=== PATIENT | male | born 1940 | race American Indian/Alaskan Native ===

== ENCOUNTER 2017-02-25 09:09 | Emergency (ER) | payer MEDICARE ==
[2017-02-25 10:00] LABS: Hematocrit 48.4 % (35.5-45.6); Hemoglobin 15.7 gm/dl (11.8-15.2); Mean Corpuscular HGB Conc 32 % (32-34); Mean Corpuscular Hemoglobin 31 pg (28-32); Mean Corpuscular Volume 95 fl (84-94); Platelet Count 346 K/mm3 (140-440); Red Blood Count 5.09 M/mm3 (3.65-5.03); Red Cell Distribution Width 16.1 % (13.2-15.2); White Blood Count 14.8 K/mm3 (4.5-11.0)
[2017-02-25 10:19] LABS: Anion Gap 20 mmol/L; Blood Urea Nitrogen 12 mg/dL (9-20); Calcium 8.9 mg/dL (8.4-10.2); Carbon Dioxide 25 mmol/L (22-30); Chloride 100.5 mmol/L (98-107); Glucose 117 mg/dL (75-100); Potassium 4.1 mmol/L (3.6-5.0); Sodium 141 mmol/L (137-145)
--- NOTE | 2017-02-25 11:31 | XRay Report ---
Chest 2 views. History: Shortness of breath. Findings: The heart and pulmonary vessels are normal. The lungs are hyperinflated and clear, unchanged from the study in July of 2015. No pleural fluid or other pleural abnormalities. Impression: COPD with no acute findings or interval changes.
[2017-02-25 11:35] LABS: Blastocytes % (Manual) 0 %; Eosinophils % (Manual) 0 % (0.0-4.3); Schistocytes Rare
[2017-02-25 11:41] LABS: Poikilocytosis 1+
[2017-02-25] MEDS ORDERED: DUONEB *Not for PRN Use IH ONE (11:42)
--- NOTE | 2017-02-25 11:42 | Emergency Department Report ---
ED General Adult HPI - General Chief complaint: Dyspnea/Respdistress Stated complaint: CODIE Time Seen by Provider: 02/25/17 11:36 Source: patient Mode of arrival: Ambulatory Limitations: No Limitations - History of Present Illness Initial comments: The patient complains of difficulty in breathing/wheezing since yesterday. He' s had URI symptoms and sinus drainage for the past few days. He denies any productive cough, fever, chills or chest pain. He does not complain of any leg pain or swelling. He does not have medicine prescribed for a home nebulizer machine which she has. He does have a history of asthma/COPD. He uses inhalers thereof. He took 2 of his own prednisone this a.m. -: Gradual, days(s) Improves with: none Worsens with: none Associated Symptoms: cough (nonproductive), shortness of breath, other (sinus drainage) - Related Data Previous Rx's Medication Instructions Recorded Last Taken Type Arformoterol Nebu [Brovana Nebu] 15 mcg IH Q12HRT #60 ml 05/10/14 08/11/15 09: 00 Rx Albuterol *Only Ed* [Proventil 2.5 mg IH Q3HR PRN #90 nebu 08/13/15 Unknown Rx 0.5% NEBS] Amlodipine Besylate 10 mg PO DAILY #30 08/13/15 Unknown Rx Aspirin [Aspirin BABY CHEW TAB] 81 mg PO HS #80 tab.chew 08/13/15 Unknown Rx Aspirin [Aspirin TAB] 325 mg PO QDAY tablet 08/13/15 Unknown Rx Budesonide [Pulmicort Respules] 0.5 mg IH Q12HRT #30 nebu 08/13/15 Unknown Rx Fluticasone/Vilanterol [Breo 100 mg INHALATION BID #30 08/13/15 Unknown Rx Ellipta 100-25 Mcg INH] aer.pow.ba HYDROcodone/APAP 5-325 [[place] 1 each PO Q4H PRN #30 tablet 08/13/15 Unknown Rx 5-325 mg TAB] Meloxicam 15 mg PO DAILY PRN #20 08/13/15 Unknown Rx Temazepam [Restoril] 30 mg PO QHS #30 capsule 08/13/15 Unknown Rx Tiotropium [Spiriva] 18 cap INHALATION QAM #30 box 08/13/15 Unknown Rx Triamcinolone Acetonide [Nasacort 10.8 ml NS HS #1 spray 08/13/15 Unknown Rx SPRAY] tiZANidine [Zanaflex] 4 mg PO TID #90 tablet 08/13/15 Unknown Rx Albuterol Sulfate [Albuterol 0.63% 0.63 mg IH QID PRN #30 vial.neb 02/25/17 Unknown Rx NEBS] Azithromycin [Zithromax Z-SHERLYN] 250 mg PO DAILY #6 tablet 02/25/17 Unknown Rx predniSONE [Deltasone] 40 mg PO QDAY #14 tab 02/25/17 Unknown Rx Allergies Allergy/AdvReac Type Severity Reaction Status Date / Time lisinopril AdvReac Shortness Verified 05/08/14 13:31 of Breath ED Review of Systems ROS: Stated complaint: CODIE Other details as noted in HPI Constitutional: denies: chills, fever Eyes: denies: eye pain, eye discharge, vision change ENT: denies: ear pain, throat pain Respiratory: cough, shortness of breath, wheezing Cardiovascular: denies: chest pain, palpitations Endocrine: no symptoms reported Gastrointestinal: denies: abdominal pain, nausea, diarrhea Genitourinary: denies: urgency, dysuria Musculoskeletal: denies: back pain, joint swelling, arthralgia Skin: denies: rash, lesions Neurological: denies: headache, weakness, paresthesias Psychiatric: denies: anxiety, depression Hematological/Lymphatic: denies: easy bleeding, easy bruising ED Past Medical Hx - Past Medical History Previous Medical History?: Yes Hx Hypertension: Yes Hx Arthritis: Yes Hx Asthma: Yes Hx COPD: Yes Additional medical history: high cholesterol - Surgical History Past Surgical History?: Yes Additional Surgical History: colonoscopy (5 polyps removed) October. endoscopy November 10, 2013. - Social History Smoking Status: Current Every Day Smoker Substance Use Type: Alcohol, Marijuana, Prescribed Other Social History: Uncertain what the population of substance abuse at triage means - Medications Home Medications: Home Medications Medication Instructions Recorded Confirmed Last Taken Type Arformoterol Nebu [Brovana Nebu] 15 mcg IH Q12HRT #60 ml 05/10/14 08/11/15 09: 00 Rx Albuterol *Only Ed* [Proventil 2.5 mg IH Q3HR PRN #90 nebu 08/13/15 Unknown Rx 0.5% NEBS] Amlodipine Besylate 10 mg PO DAILY #30 08/13/15 Unknown Rx Aspirin [Aspirin BABY CHEW TAB] 81 mg PO HS #80 tab.chew 08/13/15 Unknown Rx Aspirin [Aspirin TAB] 325 mg PO QDAY tablet 08/13/15 Unknown Rx Budesonide [Pulmicort Respules] 0.5 mg IH Q12HRT #30 nebu 08/13/15 Unknown Rx Fluticasone/Vilanterol [Breo 100 mg INHALATION BID #30 08/13/15 Unknown Rx Ellipta 100-25 Mcg INH] aer.pow.ba HYDROcodone/APAP 5-325 [[place] 1 each PO Q4H PRN #30 tablet 08/13/15 Unknown Rx 5-325 mg TAB] Meloxicam 15 mg PO DAILY PRN #20 08/13/15 Unknown Rx Temazepam [Restoril] 30 mg PO QHS #30 capsule 08/13/15 Unknown Rx Tiotropium [Spiriva] 18 cap INHALATION QAM #30 box 08/13/15 Unknown Rx Triamcinolone Acetonide [Nasacort 10.8 ml NS HS #1 spray 08/13/15 Unknown Rx SPRAY] tiZANidine [Zanaflex] 4 mg PO TID #90 tablet 08/13/15 Unknown Rx Albuterol Sulfate [Albuterol 0.63% 0.63 mg IH QID PRN #30 vial.neb 02/25/17 Unknown Rx NEBS] Azithromycin [Zithromax Z-SHERLYN] 250 mg PO DAILY #6 tablet 02/25/17 Unknown Rx predniSONE [Deltasone] 40 mg PO QDAY #14 tab 02/25/17 Unknown Rx ED Physical Exam - General Limitations: No Limitations General appearance: alert, in no apparent distress - Head Head exam: Present: atraumatic, normocephalic, normal inspection - Eye Eye exam: Present: normal appearance, PERRL, EOMI. Absent: scleral icterus - ENT ENT exam: Present: mucous membranes moist - Neck Neck exam: Present: normal inspection. Absent: tenderness, meningismus - Respiratory Respiratory exam: Present: wheezes. Absent: respiratory distress, accessory muscle use, decreased breath sounds, prolonged expiratory - Cardiovascular Cardiovascular Exam: Present: regular rate, normal rhythm. Absent: systolic murmur, diastolic murmur, rubs, gallop - GI/Abdominal GI/Abdominal exam: Present: soft, normal bowel sounds. Absent: distended, tenderness, guarding, rebound, rigid - Rectal Rectal exam: Present: deferred - Extremities Exam Extremities exam: Present: normal inspection - Back Exam Back exam: Present: normal inspection - Neurological Exam Neurological exam: Present: alert, oriented X3, CN II-XII intact. Absent: motor sensory deficit - Psychiatric Psychiatric exam: Present: normal affect, normal mood - Skin Skin exam: Present: warm, dry, intact, normal color. Absent: rash ED Course Vital Signs 02/25/17 02/25/17 02/25/17 09:21 11:55 12:00 Temperature 98.7 F Pulse Rate 82 Pulse Rate [ 70 74 Bilateral Upper Lobe] Respiratory 18 Rate Respiratory 18 18 Rate [Bilateral Upper Lobe] Blood Pressure 142/80 Blood Pressure [Left] O2 Sat by Pulse 95 Oximetry 02/25/17 02/25/17 12:36 12:37 Temperature Pulse Rate 76 Pulse Rate [ Bilateral Upper Lobe] Respiratory 21 21 Rate Respiratory Rate [Bilateral Upper Lobe] Blood Pressure Blood Pressure 154/84 [Left] O2 Sat by Pulse 98 Oximetry - Reevaluation(s) Reevaluation #1: Improved after nebs. Lungs are clear. Appropriate for discharge. 02/25/17 13:40 ED Medical Decision Making - Lab Data Result diagrams: 02/25/17 09:42 02/25/17 09:42 Laboratory Results - last 24 hr 02/25/17 02/25/17 09:42 09:42 WBC 14.8 H RBC 5.09 H Hgb 15.7 H Hct 48.4 H MCV 95 H MCH 31 MCHC 32 RDW 16.1 H Plt Count 346 Seg Neutrophils % Registered Nurse Step Down Sodium 141 Potassium 4.1 Chloride 100.5 Carbon Dioxide 25 Anion Gap 20 BUN 12 Creatinine 1.0 Estimated GFR > 60 BUN/Creatinine Ratio 12.00 Glucose 117 H Calcium 8.9 Troponin T 0.014 - EKG Data -: EKG Interpreted by Me EKG shows normal: sinus rhythm, intervals, ST-T waves - EKG Data Interpretation: other (left axis deviation, incomplete right bundle branch block , no acute ischemic changes, secondary repolarization abnormality.) - Radiology Data interpreted by me: Chest x-ray consistent with COPD no acute process Critical care attestation.: If time is entered above; I have spent that time in minutes in the direct care of this critically ill patient, excluding procedure time. ED Disposition Clinical Impression: COPD with exacerbation URI (upper respiratory infection) Qualifiers: URI type: unspecified URI Qualified Code(s): J06.9 - Acute upper respiratory infection, unspecified Disposition: TO HOME OR SELFCARE Is pt being admited?: No Does the pt Need Aspirin: No Condition: Stable Instructions: Chronic Obstructive Pulmonary Disease (ED), Acute Bronchitis (ED) Additional Instructions: Return any acute change or problem. Rx as directed. Medication prescribed for your machine. Follow-up with Dr. Riojas. Prescriptions: Albuterol Sulfate [Albuterol 0.63% NEBS] 0.63 mg IH QID PRN #30 vial.neb PRN Reason: Wheezing Azithromycin [Zithromax Z-SHERLYN] 250 mg PO DAILY #6 tablet predniSONE [Deltasone] 40 mg PO QDAY #14 tab Referrals: BUSTER RIOJAS MD [Primary Care Provider] - 3-5 Days Time of Disposition: 13:46
[2017-02-25] MEDS ORDERED: DECADRON IM ONE (11:43)
[2017-02-25 12:09] LABS: Diff Status Complete; Platelet Estimate Consistent w Auto
[2017-02-25 14:05] VITALS: BP 154/81
== END 2017-02-25 14:04 | disposition home or self-care (01) ==
LOC: ED 09:09
DX: J44.1 Chronic obstructive pulmonary disease with (acute) exacerbation (principal); J06.9 Acute upper respiratory infection, unspecified; I10 Essential (primary) hypertension; M19.90 Unspecified osteoarthritis, unspecified site; E78.00 Pure hypercholesterolemia, unspecified; F17.210 Nicotine dependence, cigarettes, uncomplicated; F12.10 Cannabis abuse, uncomplicated; Z88.8 Allergy status to other drugs, medicaments and biological substances; Z79.82 Long term (current) use of aspirin
CPT/HCPCS: 36415; 71020; 80048; 84484; 85007; 85025; 93005; 93010; 94640; 96372; 99284; J1100